=== PATIENT | female | born 1960 | race Caucasian/White ===

== ENCOUNTER 2017-07-20 10:16 | Inpatient (IN) ==
--- NOTE | 2017-07-18 21:48 | Discharge Summary ---
<Gricelda Woo - Last Filed: 07/19/17 18:03> Date of Encounter: 07/19/17 - Discharge Diagnosis (1) Rotator cuff tear arthropathy of right shoulder Priority: Primary Status: Acute (2) Status post reverse total arthroplasty of right shoulder Priority: Primary Status: Acute (3) HTN (hypertension) Priority: Secondary Status: Chronic Qualifiers: Hypertension type: essential hypertension Qualified Code(s): I10 - Essential (primary) hypertension (4) HLD (hyperlipidemia) Priority: Secondary Status: Chronic Qualifiers: Hyperlipidemia type: unspecified Qualified Code(s): E78.5 - Hyperlipidemia , unspecified (5) PARI (obstructive sleep apnea) Priority: Secondary Status: Chronic (6) Obesity Priority: Secondary Status: Chronic Qualifiers: Obesity type: unspecified obesity type Obesity classification: unspecified obesity classification Serious obesity comorbidity presence: unspecified whether serious comorbidity present Qualified Code(s): E66.9 - Obesity, unspecified (7) History of gastric bypass Priority: Secondary Status: Chronic - Hospital Course Hospital course: Ms. Mota is a 57 year old female - Time Spent with Patient Total time spent providing and/or coordinating discharge services: - Discharge Medications Home Medications: OxyCODONE Immed Rel [Roxicodone 5 MG] 5 mg PO Q6HR PRN 7 Days #28 tablet [Rx] Biotin [Biotin] 1 mg PO DAILY 07/20/17 [History] Calcium Polycarbophil [Fiber Laxative] 625 mg PO BID 07/20/17 [History] Chlorthalidone 50 mg PO DAILY 07/20/17 [History] Cholecalciferol (D-3) [Vitamin D] 5,000 unit PO DAILY 07/20/17 [History] Cyanocobalamin (Vitamin B-12) [Vitamin B-12] 1,000 mcg PO DAILY 07/20/17 [ History] Etodolac [Etodolac] 500 mg PO BID 07/20/17 [History] Fexofenadine HCl 180 mg PO DAILY PRN 07/20/17 [History] Fluticasone Propionate Nasal [Flonase] 1 spr NS DAILY PRN 07/20/17 [History] Metoprolol Succinate [Toprol Xl] 25 mg PO DAILY 07/20/17 [History] Mirabegron [Myrbetriq] 50 mg PO DAILY 07/20/17 [History] Omeprazole [PriLOSEC] 20 mg PO DAILY 07/20/17 [History] Oxybutynin Chloride [Ditropan Xl] 15 mg PO DAILY 07/20/17 [History] Allergies/Adverse Reactions: 3 Allergy/AdvReac Type Severity Reaction Status Date / Time lisinopril AdvReac Cough Verified 07/20/17 12:23 Primary care physician: Shawnee Mar CNP - Patient Status Disposition: Home, Self-Care Condition: Good - Discharge Instructions Follow Up With: Kary Oro PAC [Physician Road Design Engineer] - 08/03/17 2:45 pm Claude Valdez MD [Partnered Physician] - 08/17/17 5:30 pm Gricelda Woo PAC [Physician Road Design Engineer] - 07/28/17 8:30 am Shawnee Mar CNP [Primary Care Provider] - 09/02/17 1:00 pm <Claude Valdez - Last Filed: 07/21/17 07:54> Orders not resulted at time of discharge: Pending orders 07/20/17 00:01 XR shoulder complete RT [XR] Routine H/H [Hemoglobin and Hematocrit] [HEME] Routine 07/20/17 12:30 US anesthesia pain block [US] Routine Date of Encounter: 07/21/17 Time of Encounter: 07:54 - Discharge Diagnosis (1) Morbid obesity with BMI of 40.0-44.9, adult Priority: Secondary Status: Chronic (2) Rotator cuff tear arthropathy of right shoulder Priority: Primary Status: Chronic (3) Status post reverse total arthroplasty of right shoulder Priority: Primary Status: Acute (4) HTN (hypertension) Priority: Secondary Status: Chronic Qualifiers: Hypertension type: essential hypertension Qualified Code(s): I10 - Essential (primary) hypertension (5) HLD (hyperlipidemia) Priority: Secondary Status: Chronic Qualifiers: Hyperlipidemia type: unspecified Qualified Code(s): E78.5 - Hyperlipidemia , unspecified (6) PARI (obstructive sleep apnea) Priority: Secondary Status: Chronic (7) History of gastric bypass Priority: Secondary Status: Chronic - Hospital Course Hospital course: Ms. Mota is a 57 year old female Status post right total shoulder replacement The patient had an uneventful postoperative course. They received antibiotics and physical therapy and were discharged in stable condition. There will follow -up in the office in 2 weeks. - Time Spent with Patient Total time spent providing and/or coordinating discharge services: Primary care physician: Shawnee Mar CNP - Patient Status Functional capacity at discharge: independent ambulation Overall status at discharge: patient is progressing back to baseline
--- NOTE | 2017-07-20 10:30 | History & Physical Report ---
Date of Encounter: 07/20/17 Time of Encounter: 10:29 24 Hour HP Update - Instructions Instructions: If the History and Physical is less than 30 days old and was completed prior to A.M. admission and or procedure and has NOT been updated on calendar day of procedure please complete this update prior to performing procedure. - Update Patient reports changes in Medical Condition: No Changes in examination, assessment, or condition: No Changes in Medication: No Preop tests/diagnostics Reviewed: Yes Surgery Remains Indicated: Yes Consent for Planned Operative Procedure(s) Verified: Yes - Pre-Operative Checklist Preoperative Checklist Indicated: No Prophylactic Antibiotic Ordered: Yes Is VTE Prophylaxis Indicated?: Yes
[2017-07-20] MEDS ORDERED: CeFAZolin Syr 2,000MG/20 ML 2,000 MG/20 ML SYRINGE IVPB ONE (10:43)
[2017-07-20] MEDS ORDERED: Ringers Solution, Lactated 1,000 ML IVC SCH ×2 (10:45→16:57)
[2017-07-20] MEDS ORDERED: Famotidine 20 MG/2 ML VIAL IVP ONE (11:43)
[2017-07-20] MEDS ORDERED: Pregabalin 75 MG CAPSULE PO ONE (11:44)
[2017-07-20] MEDS ORDERED: *HR* Propofol 200 MG/20 ML VIAL IVP ONE (12:18)
[2017-07-20] MEDS ORDERED: *HR* Midazolam HCl 2 MG/2 ML VIAL ONE (12:18)
[2017-07-20] MEDS ORDERED: *HR* FentaNYL (PF) 100 MCG/2 ML VIAL ONE (12:18)
[2017-07-20] MEDS ORDERED: *HR* Succinylcholine 200 MG/10 ML VIAL IVP ONE (12:19)
[2017-07-20] MEDS ORDERED: *HR* Rocuronium Bromide 50 MG/5 ML VIAL ONE (12:19)
[2017-07-20] MEDS ORDERED: Dexamethasone 4 MG/ML VIAL ONE (12:19)
[2017-07-20] MEDS ORDERED: Lidocaine -MPF 2% 2 ML VIAL ONE (12:19)
[2017-07-20] MEDS ORDERED: Ondansetron 4 MG/2 ML VIAL ONE (12:19)
--- NOTE | 2017-07-20 12:33 | Anesthesia Evaluation PreOp ---
Date of Encounter: 07/20/17 Time of Encounter: 12:30 - Past History Planned Operation: Rt TSR Cardiac History: HTN, Hyperlipidemia Pulmonary History: Former smoker, PARI Dx EXECUTIVE LEGAL SECRETARY History: Denies Any Significant HX Other Medical History: Other (Morbid Obesity) Alcohol Use: rarely Drug use: none Medications and Allergies OxyCODONE Immed Rel [Roxicodone 5 MG] 5 mg PO Q6HR PRN 7 Days #28 tablet [Rx] 3 Allergy/AdvReac Type Severity Reaction Status Date / Time lisinopril AdvReac Cough Verified 07/20/17 12:23 - Meds/Allergy Pre-op Review Medications Reviewed: Yes Allergies Reviewed: Yes Beta Blockers on Current Med List: Yes (Metoprolol today 0600) Anesthesia Results - Labs Laboratory Tests 07/18/17 07/18/17 12:22 12:22 Hgb 13.2 Hct 39.3 Plt Count 305 Sodium 140 Potassium 4.1 BUN 28 H Creatinine 0.72 - Imaging EKG: report reviewed (SR occ PVC) Anesthesia Exam O2 Sat Height 1.6 m Height 1.6 m Height 1.6 m Weight 114.305 kg Weight 114.305 kg Weight 114.305 kg O2 Sat by Pulse Oximetry 96 O2 Sat by Pulse Oximetry 96 Vital Signs Temp Pulse Resp BP Pulse Ox 98.0 F 63 18 138/69 96 07/20/17 10:44 07/20/17 10:44 07/20/17 10:44 07/20/17 10:44 07/20/17 10:44 Height: 5'3 Weight: 252 lbs NPO (# of Hours): MN Pain Scale: 0 - HEENT Pupil (Motor): Pupils equal, EOMI Mallampati: III Teeth: Normal Oral Opening: Less than or equal to 3 - EXECUTIVE LEGAL SECRETARY LOC: Oriented EXECUTIVE LEGAL SECRETARY Motor: Normal RUE, Normal LUE, Normal RLE, Normal LLE, Normal Face EXECUTIVE LEGAL SECRETARY Sensory: Normal: RUE, LUE, RLE, LLE, Face - Cardiac Rhythm: Regular Murmur: None JVD: No Carotid Bruit: No - Pulmonary Breath Sounds: bilateral Clear Respiratory Effort: Symmetrical Anesthesia Assess/Plan ASA Score: 3 (MO HTN PARI) Modified Jefferson Scale for Level of Consciousness: Cooperative, oriented, and tranquil Anesthetic Plan: General, Regional Monitoring Plan: Standard Monitors Recovery Plan: PACU (Discussed GA and RA, agrees to proceed)
[2017-07-20] MEDS ORDERED: Tetracaine/PF 20 MG/2 ML AMPUL ONE (12:36)
[2017-07-20] MEDS ORDERED: Bupivacaine/Clonidine Syringe 1 EACH SYRINGE ONE (12:36)
[2017-07-20] MEDS ORDERED: ROPIVACAINE HCL/PF 0.5% 30 ML VIAL ONE (12:36)
--- NOTE | 2017-07-20 13:39 | Anesthesia Procedures ---
Date of Encounter: 07/20/17 Time of Encounter: 12:30 Procedures: Anesthesia - Nerve Block Procedure Date: 07/20/17 Time: 13:00 Pre-op Diagnosis: Rt Shoulder Arthropathy Surgical Procedure: Rt TSR Checklist: Correct Patient Identifier Correct side: Right Blood Thinner: No Monitor Applied: EKG, BP, Pulse Oximetry Supplemental Oxygen via Nasal Cannula (L/min): 2 Sedation: Versed (mg): 2 Sedation: Fentanyl (mcg): 100 Indication: Post Op Analgesia Pre-op Neuro Deficits: No Block Type: Supraclavicular Catheter placed: No Depth at skin (cm): 3 Sterile Technique: Yes Ultrasound used: Yes Anatomy identified: Yes Visual spread of Local: Yes Neuro Stimulation: No Blood on Needle Aspiration: No Smooth Injection of Local: Yes Pain with Injection of Local: No Prep: Chlorhexadine Needle: 22 x 50 mm Stimuplex Local: 0.25% Bupivicaine w/Clonidine 20 mcg/cc, Tetracaine (20), Ropivacaine ( 0.5%) Volume (cc): 30 Number of Attempts: 1 Complications: Significant hemodynamic change Vitals: Vital Signs/O2 Sat/Glucose, Most Current Temp Pulse Resp BP Pulse Ox 07/20/17 12:54 65 16 126/88 95 07/20/17 12:49 69 16 133/87 98 07/20/17 10:52 98.0 F 63 18 138/69 96 07/20/17 10:44 98.0 F 63 18 138/69 96
[2017-07-20] MEDS ORDERED: EPHEDrine 50 MG/ML VIAL ONE (13:44)
[2017-07-20] MEDS ORDERED: MORPHINE SUL Oral CONC 10 MG/0.5 ML ORAL.SYG SL PRN (14:05)
[2017-07-20] MEDS ORDERED: *HR* OxyCODONE Immed Rel 5 MG TABLET PO PRN ×2 (14:05→16:57)
[2017-07-20] MEDS ORDERED: *HR* Promethazine 25 MG/ML VIAL IVP PRN (14:05)
[2017-07-20] MEDS ORDERED: Dexamethasone 4 MG/ML VIAL IVP ONE (14:05)
[2017-07-20] MEDS ORDERED: Ondansetron 4 MG/2 ML VIAL IVP ONE (14:05)
[2017-07-20] MEDS ORDERED: *HR* PHENYLEPHRINE 1,000 MCG/10 ML SYRINGE IVP ONE (14:20)
--- NOTE | 2017-07-20 14:20 | Orthopedic Operative Note ---
Date of procedure: 07/20/17 Pre-op diagnosis: Right shoulder cuff tear arthropathy Post-op diagnosis: same Procedure: Procedure: Total Shoulder Replacment Reverse, right Estimated blood loss: 100 cc Hardware: Metal and polyethylene replacement: Arthrex small glenoid baseplate, 2 4.5 screws. 1 6.5 screw, 39+4 glenosphere, 6 humeral stem, poly insert 3 Exam Under anesthesia: Full motion no instability Procedural Notes: Irreparable tear supraspinatus tendon. Operative procedure: The patient was brought to the operating room and placed on the operating room table. After general anesthesia was administered the operative shoulder was examined. Findings were noted. The patient was placed in the modified beachchair position. All pressure points were padded appropriately. And the head was stabilized in the neutral position. The operative extremity was prepped and draped in the sterile surgical fashion. The patient received IV antibiotics prior to skin incision. A standard deltopectoral approach was made to the operative shoulder. Incision was made to the skin and subcutaneous tissue,hemo stasis was obtained with Bovie cautery. Using careful blunt dissection the cephalic vein was identified and mobilized medially. The deltopectoral interval was developed and the clavipectoral fascia was incised. The subscap was released off the lesser tuberosity and tagged with #2 FiberWire suture subscap was irreparable.. The humerus was dislocated patient noted to have irreparable tear supraspinatus tendon, and the humeral cut was made along the anatomic neck. Anterior and posterior Bankart retractors were placed to expose the glenoid. The glenoid guide was seated and the centering hole was made. It was reamed with the appropriate reamer. The small baseplate was seated and secured with (2) 4.5 screws and one 6.5 screw. The baseplate was irrigated and dried and the 39+4 Glenosphere was seated and secured with the Epstein taper. The Epstein taper was tested and found to be secure the humerus was redislocated and prepared with the diaphyseal reamers, followed by a broaching process up to the appropriate size 6 in the patient's anatomic version. The metaphyseal reamer was then utilized. Trial reduction found the shoulder to be relocatable. Trial components were removed and the 6 stem was impacted in place in the patient's anatomic version. Trial reduction found the shoulder to be relocatable and stable with the appropriate 3. Trial component was removed and the real implant was seated and secured the shoulder was reduced. The shoulder had excellent motion and excellent stability and no evidence of dislocation. The deep tissue was irrigated with pulse irrigation. The PA close the shoulder. The deltopectoral interval was closed with a running #1 PDS suture, subcutaneous tissue was irrigated and closed with 0 PDS suture, the skin was closed with Dermabond. The patient was placed in a sterile dressing, abduction brace and extubated. The patient was then transferred to the recovery room in stable condition. Anesthesia: GETJohana Surgeon: Claude Valdez Was there an preschool assistant teacher present: No Estimated blood loss (cc): 100 Condition: stable Disposition: PACU
--- NOTE | 2017-07-20 15:10 | Anesthesia Evaluation Post Op ---
Date of Encounter: 07/20/17 Time of Encounter: 15:10 - Vital Signs Vital Signs: Vital Signs/O2 Sat/Glucose, Most Current Temp Pulse Resp BP Pulse Ox 07/20/17 15:07 97.2 F L 78 16 125/69 98 07/20/17 14:57 76 16 139/81 99 07/20/17 14:47 80 16 126/66 97 07/20/17 14:37 97.5 F L 65 16 139/84 100 07/20/17 12:54 65 16 126/88 95 07/20/17 12:49 69 16 133/87 98 - Lungs Lungs: Clear Ascult./Percussion - Airway Airway: Non-obstructed - Cardiovascular Regular Rate - Mental Status Mental Status: Alert & Oriented, Answers Appropriately - Pain Pain Scale: 0 - Nausea Vomiting Nausea Vomiting: Not Present - Hydration Hydration: Ice chips - Discharge PostOp Status: Transfer Patient to floor
[2017-07-20 15:17] LABS: Hematocrit 37.1 % (35.3-44.9); Hemoglobin 12.4 g/dL (11.5-15.4)
[2017-07-20] MEDS ORDERED: Ondansetron 4 MG/2 ML VIAL IVP PRN (16:57)
[2017-07-20] MEDS ORDERED: Loratadine 10 MG TABLET PO PRN (16:57)
[2017-07-20] MEDS ORDERED: Fluticasone Propionate Nasal 50 MCG/SPRAY BOTTLE NS PRN (16:57)
[2017-07-20] MEDS ORDERED: MOM Conc 10 ML UD.LIQ PO PRN (16:57)
[2017-07-20] MEDS ORDERED: traMADol 50 MG TABLET PO PRN (16:57)
[2017-07-20] MEDS ORDERED: Sennosides 8.6 MG TABLET PO PRN (16:57)
[2017-07-20] MEDS ORDERED: Temazepam 15 MG CAPSULE PO PRN (16:57)
[2017-07-20] MEDS ORDERED: Naloxone 0.4 MG/ML INJ IVP PRN (16:57)
[2017-07-20] MEDS ORDERED: *HR* Enoxaparin 30 MG/0.3 ML SYRINGE SQ SCH (18:00)
[2017-07-20] MEDS: *HR* Enoxaparin 30 MG/0.3 ML SYRINGE SQ SCH (20:26)
[2017-07-20] MEDS: CeFAZolin Pre 2,000 MG/100 ML 2,000 MG/100 ML BAG IVPB SCH (22:30)
[2017-07-21] MEDS: *HR* OxyCODONE/APAP 5/325 TABLET PO PRN ×2 (04:12→08:24)
[2017-07-21] MEDS: *HR* Enoxaparin 30 MG/0.3 ML SYRINGE SQ SCH (05:56)
[2017-07-21] MEDS: CeFAZolin Pre 2,000 MG/100 ML 2,000 MG/100 ML BAG IVPB SCH (05:57)
[2017-07-21 07:20] VITALS: BP 135/83
--- NOTE | 2017-07-21 07:55 | Orthopedics Progress Note ---
Date of Encounter: 07/21/17 Time of Encounter: 07:55 - Assessment and Plan (1) Morbid obesity with BMI of 40.0-44.9, adult Current Visit: Yes Status: Chronic (2) Rotator cuff tear arthropathy of right shoulder Current Visit: No Status: Chronic (3) Status post reverse total arthroplasty of right shoulder Current Visit: No Status: Acute (4) HTN (hypertension) Current Visit: No Status: Chronic Qualifiers: Hypertension type: essential hypertension Qualified Code(s): I10 - Essential (primary) hypertension (5) HLD (hyperlipidemia) Current Visit: No Status: Chronic Qualifiers: Hyperlipidemia type: unspecified Qualified Code(s): E78.5 - Hyperlipidemia , unspecified (6) PARI (obstructive sleep apnea) Current Visit: No Status: Chronic (7) History of gastric bypass Current Visit: No Status: Chronic Subjective Interval history: Patient was seen this morning doing well without complaints. Afebrile vital signs stable. Operative extremity: Neurovascularly intact Dressing clean dry and intact Calves nontender Assessment and plan: Continue with postoperative care Discharge today Objective Vital signs: Vital Signs Temp Pulse Resp BP Pulse Ox 07/21/17 07:15 97.7 F 91 16 135/83 94 07/21/17 03:59 98.3 F 90 15 123/82 95 07/21/17 00:03 97.9 F 91 15 121/72 94 07/20/17 20:47 97.8 F 86 16 132/78 94 07/20/17 17:45 98.5 F 78 18 148/84 95 07/20/17 16:45 98.0 F 76 16 147/84 94 07/20/17 16:15 98.2 F 75 18 152/83 95 07/20/17 16:04 97.1 F L 74 18 127/84 07/20/17 15:17 75 16 139/76 99 07/20/17 15:07 97.2 F L 78 16 125/69 98 07/20/17 14:57 76 16 139/81 99 07/20/17 14:47 80 16 126/66 97 07/20/17 14:37 97.5 F L 65 16 139/84 100 07/20/17 12:54 65 16 126/88 95 07/20/17 12:49 69 16 133/87 98 07/20/17 10:52 98.0 F 63 18 138/69 96 07/20/17 10:44 98.0 F 63 18 138/69 96 Intake and Output 07/20/17 07/20/17 07/21/17 15:59 23:59 07:59 Intake Total 20 / 20 200 / 200 Output Total 100 / 100 Balance -80 / -80 200 / 200 Intake: IV Fluids 20 / 20 200 / 200 Ancef Premix 2,000 MG/100 ML 2, 200 / 200 000 mg In 100 ml @ 200 mls/hr IVPB Q8H TRENT Rx#:[id number] Ancef Syringe 2,000 MG/20 ML 2, 20 / 20 000 mg In 20 ml @ 200 mls/hr IVPB PREOP ONE Rx#:[id number] Output: Estimated Blood Loss 100 / 100 Other: # Voids 1 1 Weight 114.305 kg 114.305 kg Patient Weight 07/21/17 23:59 Weight 114.305 kg - Labs CBC & BMP: 07/20/17 15:01 - VTE Documentation of Mechanical Device: Venous foot pump, device Consult Discharge Plan - Plan Referrals: Kary Oro, PAC [Physician Rn Relief Charge] - 08/03/17 2:45 pm Claude Valdez MD [Partnered Physician] - 08/17/17 5:30 pm Gricelda Woo, PAC [Physician Rn Relief Charge] - 07/28/17 8:30 am Shawnee Mar CNP [Primary Care Provider] - 09/02/17 1:00 pm
[2017-07-21] MEDS ORDERED: Metoprolol XL (24 HR) Succ 25 MG TAB.ER.24H PO SCH (09:00)
[2017-07-21] MEDS ORDERED: Cholecalciferol (D-3) 1,000 UNIT TABLET PO SCH (09:00)
[2017-07-21] MEDS ORDERED: Biotin [Biotin] 1 MG PO SCH (09:00)
[2017-07-21] MEDS ORDERED: Mirabegron [Myrbetriq] 50 MG PO SCH (09:00)
[2017-07-21] MEDS ORDERED: Cyanocobalamin (B-12) 1,000 MCG TABLET PO SCH (09:00)
[2017-07-21 10:32] LABS: Hematocrit 35.8 % (35.3-44.9); Hemoglobin 11.7 g/dL (11.5-15.4)
--- NOTE | 2017-07-21 12:11 | Event Note ---
Date of Encounter: 07/21/17 Time of Encounter: 12:08 PCR - POD#1 - Right TSR-r . Patient seen at bedside. Labs reviewed. Pain control: adequate Participating in PT. All questions and concerns addressed. Educated on use of incentive spirometer. Encouraged ambulation and proper hydration. Patient educated on post-operative restrictions and post-operative care. Addressed: see above Discharge plan: Home with outpatient PT
== END 2017-07-21 11:50 | disposition home or self-care (01) | DRG 315 ==
LOC: SAMDAY 10:16 → 1ANU 15:50 → 3ANU 15:54
PROVIDERS: ADMIT Orthopaedic Surgery; ATTEND Orthopaedic Surgery